=== PATIENT | male | born 1965 | race Caucasian/White ===

== ENCOUNTER 2020-06-24 09:51 | Emergency (ER) | payer BC ==
--- OUTSIDE RECORDS SUMMARY | 2020-06-24 09:54 | XMS REPORT | Continuity of Care Document ---
:1965 Author Organization [facility] t Address [address] [place] [address] Care Team Providers Name Role Phone Unavailable Unavailable Unavailable Payers Payer Name Policy Type Policy Number Effective Date Expiration Date S ource Problems This patient has no known problems. Allergies, Adverse Reactions, Alerts Allergy Allergy Status Severity Reaction(s) Onset Inactive Treating Comm ents Source Name Type Date Date Clinician [place] DA Active [place] [facility] 09-14 00:[facility]: [address] [facility] Sulfa DA Active [place] [facility] ([place] 09-14 [place]ide 00:00: [place] [facility] Center Medications This patient has no known medications. Procedures This patient has no known procedures. Results This patient has no known results.
[2020-06-24] MEDS ORDERED: SMZ./TMP. 800/160 MG TABLET ONE (11:46)
[2020-06-24] MEDS ORDERED: CLINDAMYCIN 900MG/D5W 900 MG/50 ML IVPB IV ONE (11:47)
[2020-06-24] MEDS ORDERED: KETOROLAC 30 MG/ML INJ ONE (11:48)
[2020-06-24 11:55] LABS: Absolute Lymphocytes (CBC) 1.6 K/uL (0.7-4.9); Hematocrit 42.9 % (39.6-49.0); MPV 7.7 fL (7.6-11.3); RBC Red Blood Cell Count 4.24 M/uL (4.33-5.43)
[2020-06-24 12:12] LABS: BUN Blood Urea Nitrogen 18 mg/dL (7-18); Bicarbonate 26 mmol/L (21-32); Glucose Level 108 mg/dL (74-106); Potassium 4.3 mmol/L (3.5-5.1); Sodium Level 140 mmol/L (136-145)
--- NOTE | 2020-06-24 12:36 | RAD REPORT ---
EXAM DESCRIPTION: USExtkenan Venous Uni Ltd06/24/2020 12:19 pm CLINICAL HISTORY: left leg pain and swelling. COMPARISON: None. FINDINGS: Left common femoral, superficial femoral, popliteal and posterior tibial veins are compre ssible and demonstrate augmentation. Doppler demonstrates good flow. Echogenic material consistent with acute thrombus is present throughout the greater saphenous vein to its insertion with the left common femoral vein. IMPRESSION: No evidence of deep venous thrombosis involving the left lower extremity. Acute thrombus throughout the greater saphenous vein
--- NOTE | 2020-06-24 14:20 | EDPHYS ---
Physician Documentation [facility] Name: Keo Pillai Age: 55 yrs Sex: Male : 1965 Arrival Date: 06/24/2020 Time: 10:10 Bed 5 Private MD: ED Physician Hector Wagoner HPI: 06/24 11:17 This 55 yrs old Male presents to ER via Ambulatory with complaints of Leg kdr Pain, Wound Check. 11:17 The patient presents with pain, that is chronic, swelling, tenderness, Erythema. The kdr complaints affect the lateral aspect of left calf, medial aspect of left calf and left adan. Context: The problem was sustained at home, . Onset: The symptoms/episode began/occurred More than two months. had been on abx about two months ago without resolution. Modifying factors: The symptoms are alleviated by nothing. the symptoms are aggravated by nothing. Associated signs and symptoms: Pertinent positives: swelling, warmth, Erythema. Treatment prior to arrival includes: no previous treatment. Severity of symptoms: At their worst the symptoms were mild, in the emergency department the symptoms are unchanged. The patient has not experienced similar symptoms in the past. The patient has not recently seen a physician. Historical: - Allergies: 10:27 PENICILLINS; ca1 - Home Meds: 10:27 None [Active]; ca1 - PMHx: 10:27 Hypertension; ca1 - PSHx: 10:27 None; ca1 - Immunization history:: Flu vaccine is up to date. - Social history:: Smoking status: Patient reports the use of cigarette tobacco products, smokes one pack cigarettes per day. ROS: 11:17 Constitutional: Negative for fever, chills, and weight loss, Eyes: Negative for injury, kdr pain, redness, and discharge, Neck: Negative for injury, pain, and swelling, Cardiovascular: Negative for chest pain, palpitations, and edema, Respiratory: Negative for shortness of breath, cough, wheezing, and pleuritic chest pain, Abdomen/GI: Negative for abdominal pain, nausea, vomiting, diarrhea, and constipation, Back: Negative for injury and pain, : Negative for injury, bleeding, discharge, and swelling, MS/Extremity: Negative for injury and deformity, Neuro: Negative for headache, weakness, numbness, tingling, and seizure activity. 11:17 Skin: Positive for discoloration, erythema, of the lateral aspect of left calf, left calf, medial aspect of left calf and left adan. Exam: 11:17 Constitutional: This is a well developed, well nourished patient who is awake, alert, kdr and in no acute distress. Head/Face: Normocephalic, atraumatic. 11:17 Skin: Appearance: normal except for affected area, Color: erythematous, tha, Temperature: warm, Moisture: dry, swelling, noted on the lateral aspect of left calf, left calf, medial aspect of left calf and left adan. Vital Signs: 10:24 BP 181 / 100; Pulse 70; Resp 16 S; Temp 97.1(TE); Pulse Ox 99% on R/A; Weight 142.88 kg ca1 (R); Height 5 ft. 9 in. (175.26 cm) (R); Pain 9/10; 12:30 BP 166 / 84; Pulse 62; Resp 17; Pulse Ox 97% ; bp 13:37 BP 187 / 100; Pulse 53; Resp 17; Pulse Ox 97% on R/A; tw2 14:51 BP 175 / 84; Pulse 58; Resp 16; Pulse Ox 98% ; bp 10:24 Body Mass Index 46.52 (142.88 kg, 175.26 cm) ca1 MDM: 14:20 Patient medically screened. kdr 18:15 Data reviewed: vital signs, nurses notes, lab test result(s), radiologic studies. kdr Counseling: I had a detailed discussion with the patient and/or guardian regarding: the historical points, exam findings, and any diagnostic results supporting the discharge/admit diagnosis, lab results, radiology results, the need for outpatient follow up. 06/24 11:17 Order name: CBC with Diff; Complete Time: 13:36 kdr 06/24 11:17 Order name: Chem 7; Complete Time: 13:36 kdr 06/24 11:17 Order name: US Extremity Venous Unilateral Ltd; Complete Time: 13:36 kdr 06/24 11:32 Order name: Misc. Order: Clean and dress wound on leg; Complete Time: 12:53 kdr Administered Medications: 11:36 Drug: Clindamycin 900 mg Route: IVPB; Infused Over: 30 mins; Site: right antecubital; bp 14:53 Follow up: IV Status: Completed infusion; IV Intake: 50ml bp 11:36 Drug: Bactrim (160 mg-800 mg (DS) 1 tablet Route: PO; bp 14:53 Follow up: Response: No adverse reaction bp 11:37 Drug: Ketorolac 15 mg Route: IVP; Site: right antecubital; bp 14:53 Follow up: Response: No adverse reaction bp Disposition: 06/24/20 14:20 Discharged to Home. Impression: Greater Saphenous Vein Thrombus - left leg, Cellultis left leg. - Condition is Stable. - Discharge Instructions: Cellulitis, Adult, Lemx-ct-Bwoh, Venous Thromboembolism. - Prescriptions for Eliquis 5 mg Oral tablet - take 1 tablet by ORAL route 2 times per day for 30 days Take this medication when you have completed the first seven day regimen; 60 tablet. Eliquis 5 mg Oral tablet - take 2 tablet by ORAL route 2 times per day for 7 days Take this regimen first and then the one tablet twice a day when this prescription is completed.; 28 tablet. Doxycycline Hyclate 100 mg Oral Tablet - take 1 tablet by ORAL route every 12 hours; 20 tablet. Bactrim 400- 80 mg Oral Tablet - take 1 tablet by ORAL route 2 times per day; 20 tablet. - Medication Reconciliation Form, Thank You Letter, Antibiotic Education form. - Follow up: Private Physician; When: 2 - 3 days; Reason: If symptoms return, Further diagnostic work-up, Recheck today's complaints, Continuance of care, Re-evaluation by your physician. - Problem is an ongoing problem. - Symptoms have improved. Signatures: Dispatcher [employer] EDCO Hector Wagoner MD MD [facility] Zbigniew Aggarwal RN RN Shakira George RN RN [facility] Corrections: (The following items were deleted from the chart) 14:55 14:20 06/24/2020 14:20 Discharged to Home. Impression: Greater Saphenous Vein Thrombus bp - left leg; Cellultis left leg. Condition is Stable. Forms are Medication Reconciliation Form, Thank You Letter, Antibiotic Education, Prescription Opioid Use. Follow up: Private Physician; When: 2 - 3 days; Reason: If symptoms return, Further diagnostic work-up, Recheck today's complaints, Continuance of care, Re-evaluation by your physician. Problem is an ongoing problem. Symptoms have improved. kdr
--- NOTE | 2020-06-24 14:20 | ER ---
Nurse's Notes [facility] Name: Keo Pillai Age: 55 yrs Sex: Male : 1965 Arrival Date: 06/24/2020 Time: 10:10 Bed 5 Private MD: Diagnosis: Greater Saphenous Vein Thrombus - left leg;Cellultis left leg Presentation: 06/24 10:24 Chief complaint: Patient states: Sore/wound on L leg for over a month. Completed 1 ca1 round of antibiotic no relief. Wound just got bigger. Has had swelling on L leg prior to the wound but swelling is more now with the wound. Denies fever. Coronavirus screen: Client denies travel out of the [place] in the last 14 days. At this time, the client does not indicate any symptoms associated with coronavirus-19. Ebola Screen: Patient negative for fever greater than or equal to 101.5 degrees Fahrenheit, and additional compatible Ebola Virus Disease symptoms Patient denies exposure to infectious person. Patient denies travel to an Ebola-affected area in the 21 days before illness onset. No symptoms or risks identified at this time. Initial Sepsis Screen: Does the patient meet any 2 criteria? No. Patient's initial sepsis screen is negative. Does the patient have a suspected source of infection? No. Patient's initial sepsis screen is negative. Risk Assessment: Do you want to hurt yourself or someone else? Patient reports no desire to harm self or others. Onset of symptoms was June 24, 2020. 10:24 Method Of Arrival: Ambulatory ca1 10:24 Acuity: RIDDHI 3 ca1 Triage Assessment: 10:30 General: Appears distressed, uncomfortable, Behavior is cooperative, appropriate for bp age, anxious. Pain: Complains of pain in left leg. EENT: No deficits noted. Neuro: No deficits noted. Cardiovascular: No deficits noted. Respiratory: No deficits noted. GI: No signs and/or symptoms were reported involving the gastrointestinal system. : No signs and/or symptoms were reported regarding the genitourinary system. Derm: Wound noted left leg. Musculoskeletal: No deficits noted. Historical: - Allergies: 10:27 PENICILLINS; ca1 - Home Meds: 10:27 None [Active]; ca1 - PMHx: 10:27 Hypertension; ca1 - PSHx: 10:27 None; ca1 - Immunization history:: Flu vaccine is up to date. - Social history:: Smoking status: Patient reports the use of cigarette tobacco products, smokes one pack cigarettes per day. Screenin:30 Abuse screen: Denies threats or abuse. Denies injuries from another. Nutritional bp screening: No deficits noted. Tuberculosis screening: No symptoms or risk factors identified. Fall Risk None identified. Assessment: 10:30 General: SEE TRIAGE NOTE. bp 12:30 Reassessment: No changes from previously documented assessment. Patient and/or family bp updated on plan of care and expected duration. Pain level reassessed. Patient is alert, oriented x 3, equal unlabored respirations, skin warm/dry/pink. ALL CURRENT ORDERS COMPLETE. 13:37 Reassessment: Patient appears in no apparent distress at this time. No changes from tw2 previously documented assessment. Patient and/or family updated on plan of care and expected duration. Pain level reassessed. Patient is alert, oriented x 3, equal unlabored respirations, skin warm/dry/pink. 14:51 Reassessment: PT D/C HOME AMBULATORY, DX WITH GREATER SAPHENOUS THROMBUS. bp Vital Signs: 10:24 BP 181 / 100; Pulse 70; Resp 16 S; Temp 97.1(TE); Pulse Ox 99% on R/A; Weight 142.88 kg ca1 (R); Height 5 ft. 9 in. (175.26 cm) (R); Pain 9/10; 12:30 BP 166 / 84; Pulse 62; Resp 17; Pulse Ox 97% ; bp 13:37 BP 187 / 100; Pulse 53; Resp 17; Pulse Ox 97% on R/A; tw2 14:51 BP 175 / 84; Pulse 58; Resp 16; Pulse Ox 98% ; bp 10:24 Body Mass Index 46.52 (142.88 kg, 175.26 cm) ca1 ED Course: 10:10 Patient arrived in ED. as 10:26 Triage completed. ca1 10:27 Arm band placed on right wrist. ca1 10:30 Patient has correct armband on for positive identification. Bed in low position. Call bp light in reach. Side rails up X2. 11:00 Zbigniew Aggarwal RN is Primary Nurse. bp 11:04 Hector Wagoner MD is Attending Physician. kdr 11:36 Inserted saline lock: 20 gauge in right antecubital area, using aseptic technique. bp Blood collected. 11:54 US Extremity Venous Unilateral Ltd Sent. bp 12:05 US Extremity Venous Unilateral Ltd In Process Unspecified. EDMS 14:51 No provider procedures requiring assistance completed. IV discontinued, intact, bp bleeding controlled, No redness/swelling at site. Pressure dressing applied. Administered Medications: 11:36 Drug: Clindamycin 900 mg Route: IVPB; Infused Over: 30 mins; Site: right antecubital; bp 14:53 Follow up: IV Status: Completed infusion; IV Intake: 50ml bp 11:36 Drug: Bactrim (160 mg-800 mg (DS) 1 tablet Route: PO; bp 14:53 Follow up: Response: No adverse reaction bp 11:37 Drug: Ketorolac 15 mg Route: IVP; Site: right antecubital; bp 14:53 Follow up: Response: No adverse reaction bp Intake: 14:53 IV: 50ml; Total: 50ml. bp Outcome: 14:20 Discharge ordered by . kdr 14:52 Discharged to home ambulatory. bp 14:52 Condition: stable bp 14:52 Discharge instructions given to patient, Instructed on discharge instructions, follow up and referral plans. medication usage, Demonstrated understanding of instructions, follow-up care, medications, Prescriptions given X 4. 14:55 Patient left the ED. bp Signatures: Dispatcher [employer] EDMS Hector Wagoner MD MD kdr Kaylin Walton Tara, RN RN tw2 Zbigniew Aggarwal RN RN bp Shakira George RN RN ca1
[2020-06-24 15:00] VITALS: TEMP 97.1
[2020-06-24 15:03] VITALS: BP 175/84; O2SAT 98
== END 2020-06-24 14:55 | disposition home or self-care (01) ==
LOC: ER 09:51
DX: I82.812 Embolism and thrombosis of superficial veins of left lower extremity (principal); I10 Essential (primary) hypertension; F17.210 Nicotine dependence, cigarettes, uncomplicated; Z88.0 Allergy status to penicillin
CPT/HCPCS: 36415; 80048; 85025; 93971; 96365; 96366; 96375; 99284

== ENCOUNTER 2022-01-21 00:18 | Inpatient (IN) | payer BC ==
--- OUTSIDE RECORDS SUMMARY | 2022-01-21 00:21 | XMS REPORT | Continuity of Care Document ---
:1965 Author Organization [facility] t Address [address] [place] [address] Care Team Providers Name Role Phone David Thom Stephane Primary Care Physician [phone] ARIS CHADWICK Attending Clinician Unavailable YESSENIA IZAGUIRRE Attending Clinician Unavailable MD YESSENIA IZAGUIRRE Attending Clinician Unavailable ARIS CHADWICK Admitting Clinician Unavailable YESSENIA IZAGUIRRE Admitting Clinician Unavailable MD YESSENIA IZAGUIRRE Admitting Clinician Unavailable Payers Payer Name Policy Type Policy Number Effective Date Expiration Date S ource Problems Condition Condition Condition Status Onset Resolution Last Treating Co mments Source Name Details Category Date Date Treatment Clinician Date Venous Venous Disease Active Overview: Method i insufficie insufficie 08-[address] ncy [facility] left lower left lower 00 note l extremity extremity might be different from the original. Added automatic ally from request for surgery [id number] Stasis Stasis Disease Active Overview: Method i ulcer ulcer 08-[address] 00:00: [facility] 00 note l might be different from the original. Added automatic ally from request for surgery [id number] Cellulitis Cellulitis Disease Active M ethodi 08-24 [facility] 00[facility]: Hospita 00 l Allergies, Adverse Reactions, Alerts Allergy Allergy Status Severity Reaction(s) Onset Inactive Treating Comm ents Source Name Type Date Date Clinician [place] DA Active [place] [facility] [place]: [place] [address] [facility]ulfa DA Active [facility] ([place] 09-14 [place] 00:[place]: [place] [facility] Center Social History Social Habit Start Date Stop Date Quantity Comments Source Sex Assigned At [birth year] [facility] 00:00:00 00:00:00 Smoking Status Start Date Stop Date Source Tobacco smoking consumption unknown [facility] Medications Ordered Filled Start Stop Current Ordering Indication Dosage Frequency Signature Comments Components Source Medication Medication Date Date Medication? Clinician (SIG) Name Name lisinopriL- Yes lisinopril [facility] hydrochloro 10-06 thiazide 13:35: mg-hydroch [facility] (PRINZIDE) 24 lorothiazi l 20-12.5 mg de 12.5 mg per tablet tablet Procedures This patient has no known procedures. Plan of Care Planned Activity Planned Date Details Comments Source Future Scheduled 2021-12-09 Hepatitis C screening [facility] Test 00:47:02 (procedure) [code = 305732861] Future Scheduled 2021-12-09 COLONOSCOPY SCREENING [facility] Test 00:47:02 [code = COLONOSCOPY SCREENING] Future Scheduled 2021-12-09 SHINGLES VACCINES (1 Met [facility] Test 00:47:02 of 2) [code = SHINGLES VACCINES (1 of 2)] Future Scheduled 2021-12-09 INFLUENZA VACCINE [facility] Test 00:47:02 [code = INFLUENZA VACCINE] Future Scheduled 2021-12-09 HEPATITIS B VACCINES Met [facility] Test 00:47:02 (1 of 3 - 3-dose series) [code = HEPATITIS B VACCINES (1 of 3 - 3-dose series)] Future Scheduled 2021-12-09 COVID-19 VACCINE (#1) Me [facility] Test 00:47:02 [code = COVID-19 VACCINE (#1)] Encounters Start End Encounter Admission Attending Care Care Encounter Source Date/Time Date/Time Type Type Clinicians Facility Department ID 2020-10-06 2020-10-06 Outpatient [facility] [id number] [place] 00:00:00 00:00:[address] 2020-09-26 2020-09-26 Outpatient [facility] [id number] [address] [place] [address] 00:00:00 00:00:[address] 2020-09-20 2020-09-20 Outpatient [facility] [id number] [place] 00:00:00 00:00:[address] 2020-08-29 2020-08-29 Outpatient [facility] [id number] [place] 00:00:00 00:00:[address] [facility] 2020-08-24 2020-08-27 Inpatient YESSENIA IZAGUIRRE [facility] [id number] [place] 00:00:00 00:00:[address] Results Test Description Test Time Test Comments Results Result Comments Source SARS-CoV-2 (COVID-19) RNA [Presence] in Respiratory sp ecimen by 2020-08-26 21:45:17 RADHA with probe detection Test Item Value Reference Range Interpretation Comme nts SARS-CoV-2 (COVID-19) RNA [Presence] in Respiratory Not detected No t-Detected specimen by RADHA with probe detection (test code = 14787-6) Whether patient is employed in a healthcare setting (test code = 88097-2) Whether the patient has symptoms related to condition of interest (test code = 79688-7) Patient was hospitalized because of this condition (test code = 82790-5) Whether the patient was admitted to intensive care unit (ICU) for condition of interest (test code = 22970-2) Whether patient resides in a congregate care setting (test code = 37586-9)
[2022-01-21 01:16] LABS: Lymphocytes % 9.3 % (15.3-44.8); MCV 97.8 fL (80-100); MPV 6.8 fL (7.6-11.3)
[2022-01-21] MEDS ORDERED: ONDANSETRON 4 MG/2 ML VIAL ONE (01:29)
[2022-01-21] MEDS ORDERED: MORPHINE 4 MG/ML SYR ONE (01:29)
[2022-01-21 01:35] LABS: Bilirubin Total 0.6 mg/dL (0.2-1.0); Potassium 3.9 mmol/L (3.5-5.1); Protein, Total 7.2 g/dL (6.4-8.2)
--- NOTE | 2022-01-21 03:10 | ER ---
Nurse's Notes [facility] Name: Keo Pillai Age: 56 yrs Sex: Male : 1965 Arrival Date: 01/21/2022 Time: 00:19 Bed 7 Private MD: Diagnosis: Acute appendicitis with generalized peritonitis;Lower abdominal pain, unspecified Presentation: 01/21 00:20 Chief complaint: EMS states: they were toned out for report of pt with right-sided bb abdominal pain x 2 days denies vomiting. Coronavirus screen: At this time, the client does not indicate any symptoms associated with coronavirus-19. Ebola Screen: No symptoms or risks identified at this time. Initial Sepsis Screen: Does the patient meet any 2 criteria? No. Patient's initial sepsis screen is negative. Does the patient have a suspected source of infection? No. Patient's initial sepsis screen is negative. Risk Assessment: Do you want to hurt yourself or someone else? Patient reports no desire to harm self or others. Onset of symptoms was January 19, 2022. 00:20 Method Of Arrival: EMS: [facility] bb 00:20 Acuity: RIDDHI 3 bb Historical: - Allergies: 00:22 PENICILLINS; bb - PMHx: 00:22 Hypertension; bb - Immunization history:: Adult Immunizations unknown. - Social history:: Smoking status: unknown. Screenin:00 Abuse screen: Denies threats or abuse. Nutritional screening: No deficits noted. jb4 Tuberculosis screening: No symptoms or risk factors identified. Fall Risk None identified. Assessment: 01:00 General: Appears in no apparent distress. uncomfortable, Behavior is calm, cooperative, jb4 appropriate for age. Pain: Complains of pain in right upper quadrant and right lower quadrant Pain does not radiate. Pain currently is 5 out of 10 on a pain scale. at worst was 10 out of 10 on a pain scale. Neuro: Level of Consciousness is awake, alert, obeys commands, Oriented to person, place, time, situation. Cardiovascular: Patient's skin is warm and dry. Respiratory: Airway is patent Respiratory effort is even, unlabored, Respiratory pattern is regular, symmetrical. GI: Abdomen is round non-distended. : No signs and/or symptoms were reported regarding the genitourinary system. EENT: No signs and/or symptoms were reported regarding the EENT system. Derm: Skin is intact, Skin is pink, warm \T\ dry. Musculoskeletal: Circulation, motion, and sensation intact. Range of motion: intact in all extremities. 02:00 Reassessment: Patient appears in no apparent distress at this time. Patient and/or jb4 family updated on plan of care and expected duration. Pain level reassessed. Patient is alert, oriented x 3, equal unlabored respirations, skin warm/dry/pink. 03:00 Reassessment: Patient appears in no apparent distress at this time. Patient and/or jb4 family updated on plan of care and expected duration. Pain level reassessed. Patient is alert, oriented x 3, equal unlabored respirations, skin warm/dry/pink. 04:00 Reassessment: Patient appears in no apparent distress at this time. Patient and/or jb4 family updated on plan of care and expected duration. Pain level reassessed. Patient is alert, oriented x 3, equal unlabored respirations, skin warm/dry/pink. Vital Signs: 00:20 BP 197 / 135; Pulse 87; Resp 16 S; Temp 97.8; Pulse Ox 96% on R/A; Weight 136.08 kg bb (R); Height 5 ft. 9 in. (175.26 cm) (R); Pain 8/10; 01:42 BP 124 / 79; Pulse 72; Resp 16; Pulse Ox 98% on R/A; Pain 5/10; jb4 03:00 BP 137 / 74; Pulse 70; Resp 16; Pulse Ox 97% on R/A; jb4 04:00 BP 129 / 71; Pulse 72; Resp 16; Pulse Ox 96% on R/A; jb4 00:20 Body Mass Index 44.30 (136.08 kg, 175.26 cm) bb ED Course: 00:19 Patient arrived in ED. bb 00:22 Triage completed. bb 00:22 Gonzalo Jin DO is Attending Physician. ms3 00:22 Arm band placed on Patient placed in an exam room, on a stretcher, on pulse oximetry. bb 01:00 Patient has correct armband on for positive identification. Placed in gown. Bed in low jb4 position. Call light in reach. Side rails up X 1. Client placed on continuous cardiac and pulse oximetry monitoring. NIBP monitoring applied. 01:00 Initial lab(s) drawn, by me, sent to lab. Inserted saline lock: 18 gauge in right jb4 antecubital area, using aseptic technique. Blood collected. 01:01 Bakari Duke, GUILLERMO is Primary Nurse. jb4 01:16 CBC with Diff Sent. jb4 01:16 CMP Sent. jb4 01:16 Lipase Sent. jb4 02:05 CT Abd/Pelvis - IV Contrast Only In Process Unspecified. EDMS 03:09 Geovany Walton MD is Hospitalizing Provider. ms3 04:21 No provider procedures requiring assistance completed. Patient admitted, IV remains in jb4 place. Administered Medications: 01:42 Drug: Zofran (Ondansetron) 4 mg Route: IVP; Site: right antecubital; jb4 02:15 Follow up: Response: No adverse reaction; Marked relief of symptoms jb4 01:42 Drug: morphine 4 mg Route: IVP; Infused Over: 4 mins; Site: right antecubital; jb4 02:15 Follow up: Response: No adverse reaction; Marked relief of symptoms jb4 03:30 Drug: Flagyl (metroNIDAZOLE) 500 mg Volume: 100 ml; Route: IVPB; Rate: 200 ml/hr; jb4 Infused Over: 30 mins; Site: right antecubital; 04:15 Follow up: Response: No adverse reaction; IV Status: Completed infusion; IV Intake: jb4 100ml 04:32 Drug: Cefepime 2 grams Route: IVPB; Rate: 200 ml/hr; Infused Over: 30 mins; Site: right jb4 antecubital; 05:02 Follow up: Response: No adverse reaction; IV Status: Completed infusion; IV Intake: jb4 100ml Medication: 01:00 VIS not applicable for this client. jb4 Intake: 04:15 IV: 100ml; Total: 100ml. jb4 05:02 IV: 100ml; Total: 200ml. jb4 Outcome: 03:09 Decision to Hospitalize by Provider. ms3 05:27 Admitted to Med/surg accompanied by nurse, via wheelchair, room 406, with chart. jb4 05:27 Condition: stable 05:27 Discharge instructions given to patient, Instructed on the need for admit, Demonstrated understanding of instructions. 05:28 Patient left the ED. jb4 Signatures: Dispatcher [facility] Isela Johnson RN RN bb Bakari Duke RN RN jb4 Gonzalo Jin, DO FUENTES ms3
--- NOTE | 2022-01-21 03:10 | EDPHYS ---
Physician Documentation [facility] Name: Keo Pillai Age: 56 yrs Sex: Male : 1965 Arrival Date: 01/21/2022 Time: 00:19 Bed 7 Private MD: ED Physician Gonzalo Jin HPI: 01/21 04:10 This 56 yrs old Male presents to ER via EMS with complaints of Abdominal Pain. ms3 04:10 56-year-old male with past medical history of hypertension presents via [facility] for ms3 right lower quadrant abdominal pain that began yesterday. Patient states pain is an 8/10 and burning. Patient denies alleviating or inciting factors. Patient denies fevers, nausea, vomiting. Patient endorses chills and diarrhea.. Historical: - Allergies: 00:22 PENICILLINS; bb - PMHx: 00:22 Hypertension; bb - Immunization history:: Adult Immunizations unknown. - Social history:: Smoking status: unknown. ROS: 04:10 ENT: Negative for injury, pain, and discharge, Neck: Negative for injury, pain, and ms3 swelling, Cardiovascular: Negative for chest pain, and palpitations. Respiratory: Negative for shortness of breath, cough, wheezing, and pleuritic chest pain. 04:10 Constitutional: Positive for chills. 04:10 Abdomen/GI: Positive for abdominal pain, diarrhea. 04:10 All other systems are negative. Exam: 04:10 Constitutional: This is a well developed, well nourished patient who is awake, alert, ms3 and in no acute distress. Head/Face: Normocephalic, atraumatic. Chest/axilla: Normal chest wall appearance and motion. Nontender with no deformity. Cardiovascular: Regular rate and rhythm with a normal S1 and S2. No gallops, murmurs, or rubs. Normal PMI, no JVD. No pulse deficits. Respiratory: Lungs have equal breath sounds bilaterally, clear to auscultation and percussion. No rales, rhonchi or wheezes noted. No increased work of breathing, no retractions or nasal flaring. Skin: Warm, dry with normal turgor. Normal color with no rashes, no lesions, and no evidence of cellulitis. MS/ Extremity: Pulses equal, no cyanosis. Neurovascular intact. Full, normal range of motion. 04:10 Abdomen/GI: Inspection: abdomen appears normal, Bowel sounds: normal, Palpation: moderate abdominal tenderness, in the right lower quadrant. Vital Signs: 00:20 BP 197 / 135; Pulse 87; Resp 16 S; Temp 97.8; Pulse Ox 96% on R/A; Weight 136.08 kg bb (R); Height 5 ft. 9 in. (175.26 cm) (R); Pain 8/10; 01:42 BP 124 / 79; Pulse 72; Resp 16; Pulse Ox 98% on R/A; Pain 5/10; jb4 03:00 BP 137 / 74; Pulse 70; Resp 16; Pulse Ox 97% on R/A; jb4 04:00 BP 129 / 71; Pulse 72; Resp 16; Pulse Ox 96% on R/A; jb4 00:20 Body Mass Index 44.30 (136.08 kg, 175.26 cm) bb MDM: 00:22 Patient medically screened. ms3 03:20 ED course: Discussed case with Dr. Walton and he accepts patient on his service. ms3 Would like patient to receive antibiotics and be n.p.o. Discussed plan for admission with patient. Patient understands agrees with plan. Patient resting comfortably in bed.. 04:10 Data reviewed: vital signs, nurses notes, lab test result(s), radiologic studies, and ms3 as a result, I will admit patient. 01/21 00:23 Order name: CBC with Diff; Complete Time: 02:57 ms3 01/21 00:23 Order name: CMP; Complete Time: 02:57 ms3 01/21 00:23 Order name: Lipase; Complete Time: 02:57 ms3 01/21 03:06 Order name: UA; Complete Time: 04:13 jb4 01/21 03:10 Order name: SARS RAPID; Complete Time: 04:13 ms3 01/21 03:16 Order name: Urinalysis EDMS 01/21 03:19 Order name: Basic Metabolic Panel EDMS 01/21 03:19 Order name: Basic Metabolic Panel; Complete Time: 05:24 EDMS 01/21 03:19 Order name: Basic Metabolic Panel EDMS 01/21 03:19 Order name: Basic Metabolic Panel EDMS 01/21 03:19 Order name: CBC with Automated Diff EDMS 01/21 03:19 Order name: CBC with Automated Diff; Complete Time: 05:19 EDMS 01/21 03:19 Order name: CBC with Automated Diff EDMS 01/21 00:23 Order name: CT Abd/Pelvis - IV Contrast Only ms3 01/21 00:23 Order name: IV Saline Lock; Complete Time: 01:15 ms3 01/21 00:23 Order name: Labs collected and sent; Complete Time: 01:16 ms3 01/21 03:16 Order name: NPO EDMS Administered Medications: 01:42 Drug: Zofran (Ondansetron) 4 mg Route: IVP; Site: right antecubital; jb4 02:15 Follow up: Response: No adverse reaction; Marked relief of symptoms jb4 01:42 Drug: morphine 4 mg Route: IVP; Infused Over: 4 mins; Site: right antecubital; jb4 02:15 Follow up: Response: No adverse reaction; Marked relief of symptoms jb4 03:30 Drug: Flagyl (metroNIDAZOLE) 500 mg Volume: 100 ml; Route: IVPB; Rate: 200 ml/hr; jb4 Infused Over: 30 mins; Site: right antecubital; 04:15 Follow up: Response: No adverse reaction; IV Status: Completed infusion; IV Intake: jb4 100ml 04:32 Drug: Cefepime 2 grams Route: IVPB; Rate: 200 ml/hr; Infused Over: 30 mins; Site: right jb4 antecubital; 05:02 Follow up: Response: No adverse reaction; IV Status: Completed infusion; IV Intake: jb4 100ml Disposition Summary: 01/21/22 03:09 Hospitalization Ordered Hospitalization Status: Inpatient Admission ms3 Provider: eGovany Walton ms3 [facility] ms3 Condition: Stable ms3 Problem: new ms3 Symptoms: are unchanged ms3 Bed/Room Type: Standard ms3 Room Assignment: 406(01/21/22 04:14) eb1 Diagnosis - Acute appendicitis with generalized peritonitis ms3 - Lower abdominal pain, unspecified ms3 Forms: - Medication Reconciliation Form ms3 - SBAR form ms3 Signatures: Dispatcher [employer] EDMS Isela Bran RN RN bb Bryson, James, RN RN jb4 Teresa Rogers RN RN eb1 Gonzalo Jin DO DO ms3 Corrections: (The following items were deleted from the chart) 03:06 00:23 Urine Dipstick-Ancillary ordered. ms3 jb4 03:22 00:23 UA MICROSCOPIC+U.LAB.BRZ ordered. EDMS EDMS 04:14 03:09 ms3 eb1
[2022-01-21 03:29] LABS: Specific Gravity > 1.030 (1.005-1.030); Urine Bacteria <20 /HPF (<20); Urine Bilirubin NEGATIVE (Negative); Urine Blood Negative (Negative); Urine Clarity Clear (Clear); Urine Color Light-Yellow (Yellow); Urine Glucose NEGATIVE (Negative); Urine Protein TRACE (Negative); Urine RBC <5 /HPF (None Seen); Urine Urobilinogen Normal (Normal); Urine pH 5.5 (5.0-7.0)
[2022-01-21] MEDS ORDERED: METRONIDAZOLE 500mg IVPB 500 MG/100 ML BAG IV ONE (03:29)
[2022-01-21] MEDS ORDERED: NA CHLORIDE 0.9% 100 ML IV ONE (03:29)
[2022-01-21] MEDS ORDERED: CEFEPIME 2 GM VIAL ONE (03:29)
[2022-01-21 03:37] LABS: SARS-CoV-2 Antigen Rapid Res Negative (Negative)
[2022-01-21 05:00] LABS: Absolute Lymphocytes (CBC) 1.6 K/uL (0.7-4.9); Hematocrit 41.1 % (39.6-49.0); Lymphocytes % 14.4 % (15.3-44.8); MCV 99.3 fL (80-100); MPV 6.5 fL (7.6-11.3); RBC Red Blood Cell Count 4.14 M/uL (4.33-5.43)
[2022-01-21 05:23] LABS: Potassium 4.1 mmol/L (3.5-5.1)
[2022-01-21 05:35] VITALS: BMI 45.4
[2022-01-21] MEDS: NA CHLORIDE 0.9% 1,000 ML IV SCH ×2 (06:32→12:00)
[2022-01-21] MEDS: MORPHINE 2 MG/ML SYR IV PRN ×2 (06:35→14:03)
[2022-01-21 07:09] LABS: Specific Gravity > 1.030 (1.005-1.030); Urine Bilirubin NEGATIVE (Negative); Urine Blood Negative (Negative); Urine Clarity Clear (Clear); Urine Color Light-Yellow (Yellow); Urine Glucose NEGATIVE (Negative); Urine Protein 1+ (Negative); Urine RBC <5 /HPF (None Seen); Urine Urobilinogen Normal (Normal); Urine pH 5.5 (5.0-7.0)
[2022-01-21] MEDS: CEFEPIME 1 GM in NA CHLORIDE 0.9% 100 ML IV SCH ×2 (08:23→20:00)
[2022-01-21] MEDS: METRONIDAZOLE 500mg IVPB 500 MG/100 ML BAG IV SCH ×2 (08:24→16:49)
--- NOTE | 2022-01-21 14:54 | P.CNS ---
Date of Consult: 01/21/22 Mr. Pillai is a 56 yo M with past medical history of hypertension not on medications who was admitted to surgical team for suspected perforated appendix. Patient is on bowel rest with IV fluids and IV antibiotics. Hospitalist team consulted for hypertension and medication management. Patient's vitals are currently stable and he is asymptomatic. PMH: Hypertension SHx: Leg surgery Soc: Smokes 1ppd, drinks 6-10 beers daily (last drink 4 days ago, no history of delirium tremens or alcohol withdrawal) FHX: colon cancer - brother and sister, liver cancer - brother, breast cancer- mom (patient has never had a colonoscopy done) Assessment Perforated appendix Hypertension Alcohol use Tobacco use Plan Perforated appendix - managed by surgical team - IV antibiotics, IV fluids, bowel rest Hypertension - IV hydralazine as needed Alcohol use - telemetry, CIWA protocol, librium PRN Tobacco use - nicotine patch PRN Full Code DVT ppx: SCDs
--- NOTE | 2022-01-21 19:52 | HP ---
Date of Admission: 01/21/2022 Diagnosis: Perforated appendicitis. History Of Present Illness: This is the case of a 56-year-old patient, who has a 3-day history of ab dominal pain. He says he is a tough curtis, trying to it off. Yesterday, was getting a yue le bit worse and then until last night that he just said it was a little bit too much for him of conc linda and he decided to come to the ER, found to have perforated appendicitis. He is calm. He is not in any distress. Actually, he is surprised. He just basically has some pain on the right lower side and he was a little concerned because in few days he has not get better. He is having bowel movemen t. He was eating and he has no nausea or vomiting. He denies any dysuria, hematuria, hematochezia, melena. Denies any recent traveling out of the country. Denies any family member sick at home. Den ies any fever. Allergies: PENICILLIN. Medications: Medication for hypertension, although he says he does not take medications for that. Social History: He smokes about a pack a day. He drinks 2 beers every now and then. No heavy alcoh ol. Family History: Noncontributory. Previous screening for colon cancer, he never had a colonoscopy done before. [facility]. Review of Systems: See H and P. Ten points otherwise unremarkable. Physical Examination: General: The patient is awake, alert. HEENT: Pupils are equal and reactive. Anicteric. Neck: Supple. Chest: Clear. Abdomen: Right lower quadrant tenderness. The rest of the abdomen is soft and depressible. No rebo und. Rectal: Deferred. Extremities: Good capillary refill. Neuro: Cranial nerves 2 through 12 grossly within normal limits. Laboratory Data: Blood work shows a WBC count of 10.4, hemoglobin of 15, platelets of 256, absolute neutrophils of 8.3. Sodium is 135, chloride is 101, total bilirubin of 0.6, lipase 116. UA is nitri te negative. CAT scan of the abdomen and pelvis, the official report is still pending. I called Dr. Pitts, who is the radiologist on-call today. We could not see the [facility] report neither even in [employer] computer. He states sometimes they have been having that issue, so he was kind enough to read the CAT scan for me. Once again, he confirmed the suspicious finding of acute appendicitis. Unfortunate ly, it shows some inflammation and so findings consistent with a ruptured appendicitis. Assessment: Perforated appendicitis. Plan: We offered few options since we probably days ago, he is well off and he feels bett er. He is not even nauseous or vomiting at this moment. He has been alternative and this is what we explained. We have the option right now to do an emergent diagnostic lap, possible lapar otomy, possible bowel resection, possible appendectomy, although with all that information, yet there is a possibility that we may end out doing this open and also may have to remove more than just the appendix since sometimes the anatomy is not that well defined without inflammation and perforation. Since it is well off and he has no peritonitis at this moment, the second alternative will be about 5 -7 days of intravenous antibiotics, bowel rest and then after that, definitely he is going to need di agnostic lap in the future with possible appendectomy, but obviously the conditions we expect to be d ifferent at that moment and most likely it is done as a day surgery, not before doing a colonoscopy t o rule out any malignancy or any neoplasia in that area that may be contributing to appendicitis in [age] years old with no acute peritonitis present. He understands what I am talking about and the risks of having tumors in that area and how it is important in the future not to miss his colono scopies. Since he is clinically stable, he preferred a nonsurgical option, although this may change at any moment if clinically he deteriorate. We are going to ask the medical doctor to consult on derrick s case. He has history of hypertension. He is not taking his blood pressure medication. He says he always keeping it to 145 or 150 and we explained to him that is not the ideal situation. He also wilkinson s history of venous disease. He was advised to see a vein center. ARIE/MYRON Voice ID: [id number]
[2022-01-22] MEDS: NA CHLORIDE 0.9% 1,000 ML IV SCH ×4 (01:47→21:00)
[2022-01-22] MEDS: METRONIDAZOLE 500mg IVPB 500 MG/100 ML BAG IV SCH ×3 (01:48→17:44)
[2022-01-22 04:26] LABS: Absolute Lymphocytes (CBC) 1.1 K/uL (0.7-4.9); Hematocrit 42.1 % (39.6-49.0); Lymphocytes % 12.8 % (15.3-44.8); MCV 99.9 fL (80-100); MPV 6.8 fL (7.6-11.3); RBC Red Blood Cell Count 4.21 M/uL (4.33-5.43)
[2022-01-22 04:44] LABS: Potassium 4.6 mmol/L (3.5-5.1)
[2022-01-22] MEDS ORDERED: INFLUENZA VACCINE (for 6+ mo) 0.5 ML DOSE IMVAC ONE (08:00)
[2022-01-22] MEDS: NICOTINE 14 MG/PAT TD SCH (08:29)
[2022-01-22] MEDS: CEFEPIME 1 GM in NA CHLORIDE 0.9% 100 ML IV SCH ×2 (08:30→21:06)
[2022-01-22] MEDS: HYDRALAZINE HCL 20 MG/ML VIAL IV PRN (09:23)
--- NOTE | 2022-01-22 10:20 | RAD REPORT ---
EXAM DESCRIPTION: CT - Abdomen Pelvis W Contrast - 01/21/2022 2:04 am ADDENDUM #1 Addendum: Dr. Foster discussed these critical findings with Dr. Jin via telephone at approximately 02:57 hours [employer]ION[employer] CONSULTANT on 01/21/2022. Electronically signed by: Jose Foster MD 01/21/2022 2:59 AM CDT End of Addendum EXAM DESCRIPTION: CT Abdomen and Pelvis With Intravenous Contrast CLINICAL HISTORY: The patient is 56 years old and is Male; RLQ abdominal pain TECHNIQUE: Axial computed tomography images of the abdomen and pelvis with intravenous contrast. S agittal and coronal reformatted images were created and reviewed. This CT exam was performed using one or more of the following dose reduction techniques: automated exposure control, adjustment of t he mA and/or kV according to patient size, and/or use of iterative reconstruction technique. COMPARISON: No relevant prior studies available. FINDINGS: LUNG BASES: Unremarkable. No mass. No consolidation. ABDOMEN: LIVER: Unremarkable. No mass. GALLBLADDER AND BILE DUCTS: Unremarkable. No calcified stones. No ductal dilation. PANCREAS: Unremarkable. No mass. No ductal dilation. SPLEEN: Unremarkable. No splenomegaly. ADRENALS: Unremarkable. No mass. KIDNEYS AND URETERS: Unremarkable. No solid mass. No hydronephrosis. STOMACH AND BOWEL: No associated small or large bowel dilatation to suggest obstruction. No mucosal thickening. PELVIS: APPENDIX: Dilatation of the appendix in the right lower quadrant, measuring up to 1.5 cm in diamete r, with wall thickening and extensive periappendiceal inflammation, consistent with acute appendiciti s. There is trace layering free fluid noted in the right paracolic gutter and a tiny focus of suspect ed extraluminal gas demonstrated adjacent (axial image 55/117), highly suspicious for microperforatio n. No drainable fluid collection to suggest abscess formation. No overt pneumoperitoneum within the u pper abdomen. No portal or mesenteric venous gas. BLADDER: Unremarkable. No mass. REPRODUCTIVE: Unremarkable as visualized. ABDOMEN and PELVIS: INTRAPERITONEAL SPACE: See above. BONES/JOINTS: Multilevel spondylosis with no acute osseous abnormality, no significant subluxation. 2 tiny densely sclerotic foci in the right femoral head and ischium, consistent with benign a nastomoses. Pseudoarticulation between the right L5 transverse process and adjacent sacrum. SOFT TISSUES: Unremarkable. VASCULATURE: Dense calcification of the infrarenal abdominal aorta and proximal iliac branches, wit hout aneurysmal dilatation. Dense calcification of the origins of the left greater than right renal arteries. LYMPH NODES: Unremarkable. No enlarged lymph nodes. IMPRESSION: Acute appendicitis with microperforation. Electronically signed by: Jose Foster MD 01/21/2022 2:55 AM CDT ADDENDUM #1 Addendum: Dr. Foster discussed these critical findings with Dr. Jin via telephone at approximately 02:57 hours [employer] on 01/21/2022. Electronically signed by: Jose Foster MD 01/21/2022 2:59 AM CDT End of Addendum ADDENDUM #1 Addendum: Dr. Foster discussed these critical findings with Dr. Jin via telephone at approximately 02:57 hours [employer]ANT on 01/21/2022. Electronically signed by: Jose Foster MD 01/21/2022 2:59 AM CDT End of Addendum EXAM DESCRIPTION: CT Abdomen and Pelvis With Intravenous Contrast CLINICAL HISTORY: The patient is 56 years old and is Male; RLQ abdominal pain TECHNIQUE: Axial computed tomography images of the abdomen and pelvis with intravenous contrast. S agittal and coronal reformatted images were created and reviewed. This CT exam was performed using one or more of the following dose reduction techniques: automated exposure control, adjustment of t he mA and/or kV according to patient size, and/or use of iterative reconstruction technique. COMPARISON: No relevant prior studies available. FINDINGS: LUNG BASES: Unremarkable. No mass. No consolidation. ABDOMEN: LIVER: Unremarkable. No mass. GALLBLADDER AND BILE DUCTS: Unremarkable. No calcified stones. No ductal dilation. PANCREAS: Unremarkable. No mass. No ductal dilation. SPLEEN: Unremarkable. No splenomegaly. ADRENALS: Unremarkable. No mass. KIDNEYS AND URETERS: Unremarkable. No solid mass. No hydronephrosis. STOMACH AND BOWEL: No associated small or large bowel dilatation to suggest obstruction. No mucosal thickening. PELVIS: APPENDIX: Dilatation of the appendix in the right lower quadrant, measuring up to 1.5 cm in diamete r, with wall thickening and extensive periappendiceal inflammation, consistent with acute appendiciti s. There is trace layering free fluid noted in the right paracolic gutter and a tiny focus of suspect ed extraluminal gas demonstrated adjacent (axial image 55/117), highly suspicious for microperforatio n. No drainable fluid collection to suggest abscess formation. No overt pneumoperitoneum within the u pper abdomen. No portal or mesenteric venous gas. BLADDER: Unremarkable. No mass. REPRODUCTIVE: Unremarkable as visualized. ABDOMEN and PELVIS: INTRAPERITONEAL SPACE: See above. BONES/JOINTS: Multilevel spondylosis with no acute osseous abnormality, no significant subluxation. 2 tiny densely sclerotic foci in the right femoral head and ischium, consistent with benign a nastomoses. Pseudoarticulation between the right L5 transverse process and adjacent sacrum. SOFT TISSUES: Unremarkable. VASCULATURE: Dense calcification of the infrarenal abdominal aorta and proximal iliac branches, wit hout aneurysmal dilatation. Dense calcification of the origins of the left greater than right renal arteries. LYMPH NODES: Unremarkable. No enlarged lymph nodes. IMPRESSION: Acute appendicitis with microperforation. Electronically signed by: Jose Foster MD 01/21/2022 2:55 AM CDT Due to temporary technical issues with the PACS/Fluency reporting system, reports are being signed by the in house radiologists without review as a courtesy to insure prompt reporting. The interpreting radiologist is fully responsible for the content of the report.
[2022-01-22] MEDS ORDERED: LABETALOL 20 MG/4ML SYRINGE IV ONE (11:50)
--- NOTE | 2022-01-22 16:34 | PN ---
Date of Progress Note: 01/22/2022 Diagnosis: Perforated appendicitis. Subjective: The patient is a 56-year-old patient, who comes to us with several days history of abdom inal pain, found to have an appendix already with perforation. So, after discussing with him differe nt options including surgery versus antibiotics intravenously, he obviously selected antibiotics intr avenously with the elective appendix, unless I think if clinically he deteriorates, then we may have to proceed with, but we have to make available to treating during this stay. He understands also scott t even though he improves and he will need in the next few weeks colonoscopy and also a diagnostic la p with appendectomy. The benefits, alternatives, and risks fully explained to him. The patient feel s better today. No nausea. No vomiting. Passing flatus. No fever. Review of Systems: Ten points otherwise unremarkable. Physical Examination: Chest: Clear. Abdomen: Soft and depressible. Still right lower quadrant tenderness, a lot better than before. No guarding. Extremities: Good capillary refill. Laboratory Data: WBC count is 8.4. Plan: Continue with antibiotics. He was advised the importance of following up with his primary doc tor on high blood pressure. He is not taking any blood pressure medications, so Dr. Costello was kind e nough to see the patient and evaluate him to give him some advice and counseling about the blood pressure control and medications to be taken. We are going to start him o n clear liquid diet today. ARIE/MYRON Voice ID: [id number] Report ID: [id number]
--- NOTE | 2022-01-22 21:51 | P.PN ---
Date of Service: 01/22/22 Subjective: no acute events overnight feeling better less pain +BM advanced to clears this morning ROS: 10 point ROS as noted above, otherwise negative Physical Exam: Gen: NAD, AOx3 HEENT: normal conjunctiva, sclera anicteric CV: regular rate & rhythm, no edema Pulm: non-labored respirations, clear bilaterally Abd: soft, mild-moderate tenderness to palpation in RLQ Skin: no rashes, no lesions Neuro: normal speech, normal affect, moves all extremities vitals reviewed Problem List Perforated Appendicitis IV antibiotics IVF CLD per surgery pain medication as needed HTN iv hydralazine PRN previously prescribed anti-hypertensives but hasn't been compliant with them for a while start lisinopril in AM Alcohol use monitor for withdrawal nicotine patch ordered Code: Full Dispo: home, few days Time Spent Managing Pts Care (In Minutes): 35
[2022-01-23] MEDS: METRONIDAZOLE 500mg IVPB 500 MG/100 ML BAG IV SCH ×3 (00:34→17:22)
[2022-01-23 04:17] LABS: Lymphocytes % 13.1 % (15.3-44.8); MCV 98.4 fL (80-100); RBC Red Blood Cell Count 4.07 M/uL (4.33-5.43)
[2022-01-23] MEDS: HYDRALAZINE HCL 20 MG/ML VIAL IV PRN (06:52)
[2022-01-23] MEDS: NA CHLORIDE 0.9% 1,000 ML IV SCH ×3 (06:53→20:00)
[2022-01-23] MEDS: lisinopriL 10 MG TAB PO SCH (08:48)
[2022-01-23] MEDS: CEFEPIME 1 GM in NA CHLORIDE 0.9% 100 ML IV SCH ×2 (08:50→21:04)
[2022-01-23] MEDS: NICOTINE 14 MG/PAT TD SCH (08:51)
--- NOTE | 2022-01-23 15:01 | PN ---
Date of Progress Note: 01/23/2022 Diagnosis: Perforated appendicitis. Subjective: Patient is doing better. He is starting to tolerate diet. No nausea, no vomiting. He is on clear liquid diet. We are going to advance soft diet. Review of Systems: Short of breath. No chest pain. No fever. The abdominal pain is a lot better, passing flatus, and has a bowel movement. Physical Examination: Chest: Clear. Abdomen: Soft and depressible. Right lower quadrant tenderness, although no rebound this time and n o guarding. Extremities: Good capillary refill. Laboratory Data: The WBC count came down even more to 7. Plan: Continue antibiotics. Advance diet. We are trying to complete at least 7 days of IV antibiot ics and then complete the rest by mouth. If he continue with this, may see clinical improvement. ARIE/MYRON Voice ID: [id number] Report ID: [id number]
[2022-01-23 23:44] VITALS: O2SAT 94
[2022-01-24] MEDS: HYDRALAZINE HCL 20 MG/ML VIAL IV PRN ×3 (00:18→23:58)
[2022-01-24] MEDS: METRONIDAZOLE 500mg IVPB 500 MG/100 ML BAG IV SCH ×3 (00:24→16:04)
[2022-01-24] MEDS: NA CHLORIDE 0.9% 1,000 ML IV SCH ×3 (04:12→23:52)
[2022-01-24] MEDS: CEFEPIME 1 GM in NA CHLORIDE 0.9% 100 ML IV SCH ×2 (08:53→20:36)
[2022-01-24] MEDS: NICOTINE 14 MG/PAT TD SCH ×2 (08:53→09:00)
[2022-01-24] MEDS: lisinopriL 10 MG TAB PO SCH (08:53)
[2022-01-24] MEDS: AMLODIPINE 10 MG TAB PO SCH (13:32)
--- NOTE | 2022-01-24 22:37 | PN ---
Diagnosis: Acute appendicitis with perforation. Subjective: Patient is doing better. No complaint. No nausea, no vomiting, not passing flatus and now starting to tolerate diet. Objective: Chest: Clear. Abdomen: Soft and depressible. Mild right upper quadrant tenderness, but no guarding, no rebound at this time. Extremities: Good capillary refill. Laboratory Data: Blood work reviewed with the patient with normal WBC count at this moment. Plan: If he wants to, he can continue his antibiotics at home. He is going to complete tomorrow 5 d ays. He can complete the rest of the antibiotics by mouth now that we know his GI system is starting to function. If he goes home, we encouraged him to follow up in my office this Saturday. Then, after that, he is going to be scheduled electively in the next few weeks for a colonoscopy and eventually also elective appendectomy. He understands the plan. If the pain comes back once again, he has to c ome to the ER immediately. ARIE/MYRON Voice ID: [id number] Report ID: [id number]
[2022-01-25] MEDS: METRONIDAZOLE 500mg IVPB 500 MG/100 ML BAG IV SCH ×2 (00:01→08:43)
[2022-01-25] MEDS: NA CHLORIDE 0.9% 1,000 ML IV SCH ×3 (04:00→10:23)
[2022-01-25] MEDS: CEFEPIME 1 GM in NA CHLORIDE 0.9% 100 ML IV SCH (08:43)
[2022-01-25] MEDS: HYDRALAZINE HCL 20 MG/ML VIAL IV PRN (08:44)
[2022-01-25] MEDS: NICOTINE 14 MG/PAT TD SCH (08:44)
[2022-01-25] MEDS: AMLODIPINE 10 MG TAB PO SCH (08:44)
[2022-01-25] MEDS ORDERED: lisinopriL 20 MG TAB PO SCH (09:00)
[2022-01-25 13:49] VITALS: BP 163/88; TEMP 98.7
--- NOTE | 2022-01-25 14:33 | P.PN ---
Subjective Date of Service: 01/25/22 Patient has no new complaints. He has tolerated solid diet and desires to go home. Physical Examination - Vital Signs Temperature: 98.7 F Blood Pressure: 163/88 Pulse: 90 Respirations: 14 Pulse Ox (%): 98 Assessment And Plan - Plan Physical Exam: Gen: NAD, AOx3 HEENT: normal conjunctiva, sclera anicteric CV: regular rate & rhythm, no edema Pulm: non-labored respirations, clear bilaterally Abd: soft, nontender. Skin: no rashes, no lesions Neuro: No focal motor deficit. vitals reviewed Problem List Perforated Appendicitis Antibiotics IVF Patient tolerating solid diet. HTN Uncontrolled Patient started on lisinopril and dose increased to 20 mg daily. Also added amlodipine 10 mg daily. Follow-up with PCP as outpatient within a week or 2 to titrate antihypertensives . Alcohol use No sign of withdrawal Code: [employer] Supervisor Spent Managing Pts Care (In Minutes): 24.
== END 2022-01-25 14:14 | disposition home or self-care (01) | DRG 373 ==
LOC: ER 00:18 → ERHOLD 03:28 → 4TH 04:42
PROVIDERS: ADMIT Surgery; ATTEND Surgery
DX: K35.32 Acute appendicitis with perforation, localized peritonitis, and gangrene, without abscess (principal); I10 Essential (primary) hypertension; F17.210 Nicotine dependence, cigarettes, uncomplicated; Z88.0 Allergy status to penicillin; Z20.822 Contact with and (suspected) exposure to COVID-19
CPT/HCPCS: 36415; 74177; 80048; 80053; 81001; 82947; 83690; 85025; 87811; 96365; 96367; 96375; 99285; J0360; J0692; J2270; J2405; J7030; Q9967

== ENCOUNTER 2022-03-21 09:17 | Day surgery (SDC) | payer BC ==
[2022-03-21] MEDS ORDERED: Ringers Lactate 1,000 ML IV ONE (09:39)
[2022-03-21] MEDS ORDERED: propofoL 200 MG/20 ML VIAL IV ONE ×3 (10:53→11:18)
--- NOTE | 2022-03-21 11:33 | ENDO RPT ---
[address], [address] COLONOSCOPY PROCEDURE REPORT EXAM DATE: 03/21/2022 PATIENT NAME: Keo Pillai MR #: [id number] BIRTHDATE: 1965 ATTENDING: Geovany Walton MD STATUS: outpatient MACHINE TOOL REBUILDER: Keyana Lugo RN, Jessica Mckeon RN, and Colleen PYLE INDICATIONS: The patient is a 56 yr old Male here for a colonoscopy due to colon cancer screening and f/u for perforated appendicits PROCEDURE PERFORMED: Colonoscopy MEDICATIONS: Per Anesthesia. ESTIMATED BLOOD LOSS: None CONSENT: The patient understands the risks and benefits of the procedure and understands that these risks include, but are not limited to: sedation, allergic reaction, infection, perforation and/or bleeding. Alternative means of evaluation and treatment include, among others: physical exam, x-rays, and/or surgical intervention. The patient elects to proceed with this endoscopic procedure. DESCRIPTION OF PROCEDURE: During intra-op preparation period all mechanical medical equipment was checked for proper function. Hand hygiene and appropriate measures for infection prevention was taken. Procedure, possible complications, alternatives including, but not limited to possibility of bleeding, perforation, tear, infection, sepsis, need for surgery, need for blood transfusion, were explained to the patient. After the risks, benefits and alternatives of the procedure were thoroughly explained, Informed consent was verified, confirmed and timeout was successfully executed by the treatment team. The patient was placed in the left lateral position. A digital rectal exam was performed and revealed external hemorrhoids. After appropriate level of anesthesia, the scope was passed. The EC-[id number] ([id number]) endoscope was introduced through the anus and advanced to the cecum, which was identified by transillumination from the light source, the appendix, and the ileocecal valve. The quality of the prep was good. The instrument was then slowly withdrawn as the colon was fully examined. Scope withdrawal time was . COLON FINDINGS: Diverticula was found in the descending colon. The opening was small. Moderate sized internal and external hemorrhoids were found. Two sessile polyps were found in the proximal ascending colon and approximatrely 70cm from anal verge.. Retroflexed views revealed no abnormalities. The scope was then completely withdrawn from the patient and the procedure terminated. ADVERSE EVENTS: There were no complications. IMPRESSIONS: 1. Diverticula in the descending colon 2. Moderate sized internal and external hemorrhoids 3. Two sessile polyps ranging between 3-5mm in size were found in the ascending colon; polypectomy was performed in a piecemeal fashion using hot forceps RECOMMENDATIONS: 1. follow-up: office 1 week(s) 2. surgery Appendectomy RECALL: for Colonoscopy, pending biopsy results. Geovany Walton MD eSigned: Geovany Walton MD 03/21/2022 11:33 AM cc: CPT CODES: ICD9 CODES: PATIENT NAME: Keo Pillai MR#: [id number]
[2022-03-21 11:58] VITALS: O2SAT 100
[2022-03-21 11:59] VITALS: TEMP 97.6
[2022-03-21 12:14] VITALS: BP 146/78
== END 2022-03-21 12:10 | disposition home or self-care (01) ==
LOC: OR 09:17
PROVIDERS: ATTEND Surgery
PROC: 0DBK8ZX Excision of Ascending Colon, Via Natural or Artificial Opening Endoscopic, Diagnostic (ICD-10-PCS; principal; 2022-03-21 11:30)
DX: Z12.11 Encounter for screening for malignant neoplasm of colon (principal); K64.4 Residual hemorrhoidal skin tags; K64.8 Other hemorrhoids; K57.30 Diverticulosis of large intestine without perforation or abscess without bleeding
CPT/HCPCS: 45384; 88305; J2704 ×2; J7120

== ENCOUNTER 2022-03-28 09:12 | Day surgery (SDC) | payer BC ==
[2022-03-27 14:46] LABS: Potassium 4.6 mmol/L (3.5-5.1)
[2022-03-27 14:48] LABS: Absolute Lymphocytes (CBC) 1.8 K/uL (0.7-4.9); Hematocrit 43.4 % (39.6-49.0); Lymphocytes % 27.3 % (15.3-44.8); MPV 7.1 fL (7.6-11.3); RBC Red Blood Cell Count 4.34 M/uL (4.33-5.43)
--- NOTE | 2022-03-27 15:11 | RAD REPORT ---
EXAM DESCRIPTION: RAD - Chest Pa And Lat (2 Views) - 03/27/2022 2:59 pm CLINICAL HISTORY: PRE OP DIAGNOSTIC LAP POSS APPY Chest pain. COMPARISON: No comparisons TECHNIQUE: PA and lateral views of the chest were obtained. FINDINGS: The lungs are hyperexpanded compatible with COPD. The heart is upper limit of normal in si ze. No fracture or aggressive bony process. IMPRESSION: COPD without acute process identified. The USPSTF recommends annual screening for lung cancer with low-dose CT (LDCT) in adults aged 50 to 80 years who have a 20 pack-year smoking history and currently smoke or have quit within the past 15 years.
[2022-03-28] MEDS ORDERED: Ringers Lactate 1,000 ML IV ONE (09:28)
[2022-03-28] MEDS ORDERED: propofoL 200 MG/20 ML VIAL IV ONE (10:22)
[2022-03-28] MEDS ORDERED: FENTANYL CITR 100 MCG/2 ML ONE ×2 (10:22→11:54)
[2022-03-28] MEDS ORDERED: ONDANSETRON 4 MG/2 ML VIAL ONE (10:22)
[2022-03-28] MEDS ORDERED: MIDAZOLAM HCL 2 MG/2 ML INJ ONE (10:22)
[2022-03-28] MEDS ORDERED: LIDOCAINE 2% MPF 5 ML VIAL ONE (10:22)
[2022-03-28] MEDS ORDERED: GLYCOPYRROLATE 0.2 MG/ML SYR ONE (10:22)
[2022-03-28] MEDS ORDERED: ROCURONIUM 50 MG/5 ML VIAL IV ONE (10:22)
[2022-03-28] MEDS ORDERED: NEOSTIGMINE 1 MG/ML -10 ML VIAL ONE (10:22)
[2022-03-28] MEDS ORDERED: CIPROFLOXACIN 400mg IV 400 MG/200 ML BAG IV ONE (11:23)
--- NOTE | 2022-03-28 12:04 | P.BOP ---
Preoperative diagnosis: perforated appendicitis, Postoperative diagnosis: same plus aumbilical hernia Primary procedure: 1. Diagnostic laparoscopy, 2. Laparoscopic appendectomy Secondary procedure: 3. umbilical hernia repair [employer]mill Production Worker: juan BENTON) Estimated blood loss: <10cc Specimen: appendix Findings: as above Anesthesia: General Complications: None Transferred to: Recovery Room Condition: Good
[2022-03-28] MEDS: HYDROMORPHONE HCL 1 MG/ML INJ ONE ×8 (12:26→12:51)
[2022-03-28 12:41] VITALS: TEMP 97.6
[2022-03-28 13:24] VITALS: O2SAT 98
[2022-03-28] MEDS ORDERED: CODEINE 30MG/APAP 300MG TAB ONE (13:32)
[2022-03-28 14:35] VITALS: BP 156/88
--- NOTE | 2022-03-28 21:32 | OP ---
Date of Procedure: 03/28/2022 Surgeon: Geovany Walton MD Network Coordinator: PA Blanton Diagnosis: Perforated appendicitis plus intraabdominal abscess, status post long-term antibiotics tr eatment and status post colonoscopy. Postoperative Diagnosis: Perforated appendicitis plus intraabdominal abscess, status post long-term antibiotics treatment and status post colonoscopy plus umbilical hernia. Procedures: 1.Diagnostic laparoscopy. 2.Laparoscopic appendectomy. 3.Umbilical hernia repair. Estimated Blood Loss: Less than 10 cc. Specimen: Appendix, hernia sac. Finding: Patient has incarcerated omentum and the umbilical hernia was carefully reduced. The patie nt also have evidence of past inflammation of the appendix, but no tumor seen. The colon and ascendi ng and transverse and descending colon with no extraluminal masses. In the area of the pelvis and ri ght lower quadrant with no abscess seen. Complications: None. Indications: This is the case of a 56-year-old patient who comes to us about a month and a half ago with perforated appendicitis, requiring long-term antibiotics to bring the inflammation down. This w as followed by colonoscopy and now elective appendectomy. The benefits, alternatives, and risks of a ppendectomy, diagnostic laparoscopic, possible open appendectomy were fully explained to the patient which include, but not limited to, infection, bleeding, damage to adjacent structures, anesthesia com plication, VT, and even . He also understands this may not relieve any symptoms. He might need more than one surgical intervention. He understood, signed a consent. Procedure In Detail: The patient was brought to the operating room, placed in supine position. Anes thesia was given without complication. Abdominal area was prepped and draped in a sterile fashion. Local anesthesia was applied to area to be incised. First incision was done in the supraumbilical re gion in a curvilinear fashion. The reason for that is because we have a hernia present there. Once we opened the skin, we noticed the hernia sac, noticed the patient to have omentum after we opened th e hernia sac, but after releasing some adhesions from there, the omentum got reduced after fully insp ected and we will make sure there was no bleeding or necrosis. So, hernia sac was removed. Fascial edges were cleaned. We utilized this opening to put the Zeus trocar after placing Vicryl #1 inside the fascia. This allowed me to obtain pneumoperitoneum and then placed 2 more trocars, 5 mm each on e of them in the suprapubic and left lower quadrant. This allowed me to visualize the area of the ab domen, but no abscess seen and the findings discussed above already noted. We noticed the base of ap pendix to be spared from this inflammatory process, so I create a window in the base of the appendix, transected that with an Endo JERMAINE 45 mm nonvascular and then the patient has adhesions from previous abscess in that area that is my assumption. So, we used the LigaSure to help us dissect the area of the mesentery since it was attached to all the part of the mesentery and the ortega were not going t o be giving us the hemostasis and the margins that we want. So using the LigaSure, we removed the me soappendix and then removed the appendix from abdominal cavity using EndoCatch through umbilical inci christina. The area was inspected after irrigation and hemostasis was obtained. No bleeding. At that mo ment, I proceeded to remove the trocars under direct vision, deflated the pneumoperitoneum, closed th e fascia and umbilical hernia with #1 Vicryl. Irrigated subcutaneous tissue, closed it with 3-0 fermentation operator chelsey and skin with ortega. Sponge count and instrument counts were correct. Patient tolerated the p rocedure well. Patient was sent to recovery room in stable condition. ARIE/MYRON Voice ID: [id number] Report ID: [id number]
--- NOTE | 2022-03-28 21:38 | DS ---
Date of Discharge: 03/28/2022 Diagnosis: Perforated appendicitis and umbilical hernia. Procedure: Diagnostic laparoscopy, laparoscopic appendectomy, umbilical hernia repair. Disposition: Home. Activity: As tolerated. No heavy lifting. Plan: Follow up in my office in 1 week. Call for appointment at [phone]. Keep area dry for 48 faby rs, then may shower. CODY Voice ID: [id number] Report ID: [id number]
--- NOTE | 2022-03-31 17:34 | EKG ---
Test Date: 2022-03-27 Test Time: 14:22:04 Door Slinger: LILIAN MEASUREMENT RESULTS: Intervals: Rate: 60 RI: 206 QRSD: 94 QT: 442 QTc: 442 [place]: P: 45 RI: 206 QRS: 34 T: 77 INTERPRETIVE STATEMENTS: Normal sinus rhythm Nonspecific ST and T wave abnormality Abnormal ECG No previous ECG available for comparison Electronically Signed On 03-31-22 17:29:19 [employer] by Yonatan Ruiz
== END 2022-03-28 14:05 | disposition home or self-care (01) ==
LOC: OR 09:12
PROVIDERS: ATTEND Surgery
PROC: 0DTJ4ZZ Resection of Appendix, Percutaneous Endoscopic Approach (ICD-10-PCS; principal; 2022-03-28 11:00)
DX: K36 Other appendicitis (principal); K65.1 Peritoneal abscess; K42.9 Umbilical hernia without obstruction or gangrene; Z79.2 Long term (current) use of antibiotics
CPT/HCPCS: 93005; 85025; 80048; 36415; 88302; 88304; 71046; 44970; J2704; J2710; J2001; J2250; J3010 ×2; J1170 ×3; J7120; J2405; J0744